=== PATIENT | female | born 2000 | race Caucasian/White ===

== ENCOUNTER 2019-08-03 11:49 | Inpatient (IN) ==
[2019-08-03] MEDS ORDERED: *HR* FentaNYL (PF) 100 MCG/2 ML VIAL IVP PRN (13:07)
[2019-08-03] MEDS ORDERED: Lidocaine 1% 20 ML MDV ID PRN (13:07)
[2019-08-03] MEDS ORDERED: Naloxone 0.4 MG/ML INJ IVP PRN (13:07)
[2019-08-03] MEDS ORDERED: Ondansetron 4 MG/2 ML VIAL IVP PRN (13:07)
[2019-08-03] MEDS ORDERED: Metoclopramide 10 MG/2 ML VIAL IVP PRN (13:07)
[2019-08-03] MEDS ORDERED: Famotidine 20 MG/2 ML VIAL IVP PRN (13:07)
[2019-08-03] MEDS ORDERED: Azithromycin 500 MG in 0.9 % Sodium Chloride 250 ML IVPB ONE (13:07)
[2019-08-03] MEDS ORDERED: Calcium Gluconate 1,000 MG/10 ML VIAL IVP PRN (13:12)
[2019-08-03] MEDS ORDERED: *HR* Labetalol 20 MG/4 ML SYRINGE IVP PRN (13:12)
[2019-08-03] MEDS ORDERED: *HR* Labetalol 20 MG/4 ML SYRINGE IVP ONE (13:16)
[2019-08-03] MEDS ORDERED: Ringers Solution, Lactated 1,000 ML ONE (13:21)
[2019-08-03 13:40] LABS: Basophils % 0.4 %; Eosinophils # 0.1 K/mcL (0.0-0.6); Eosinophils % 0.9 %; Hematocrit 33.9 % (35.3-44.9); Hemoglobin 10.9 g/dL (11.5-15.4); Immature Granulocytes % 0.4 % (0-4); Lymphocytes # 1.9 K/mcL (0.6-4.6); Lymphocytes % 19.3 %; Mean Corpuscular HGB Conc 32.2 g/dL (31.6-35.5); Mean Corpuscular Hemoglobin 28.2 pg (28.0-33.3); Mean Corpuscular Volume 87.8 fL (83.0-100.0); Mean Platelet Volume 11.5 fL (9.4-12.4); Monocytes # 0.7 K/mcL (0.0-1.3); Monocytes % 6.6 %; Neutrophils # 7.2 K/mcL (1.6-8.9); Platelet Count 260 K/mcL (140-400); Red Blood Count 3.86 M/mcL (3.82-4.97); Red Cell Distribution Width 17.1 % (11.5-14.5); Segmented Neutrophils % 72.4 %
[2019-08-03 13:52] LABS: Alanine Aminotransferase 11 Units/L (7-52); Aspartate Amino Transferase 16 Units/L (13-39); BUN/Creatinine Ratio 21 (6-26); Blood Urea Nitrogen 12 mg/dL (6-20); Lactate Dehydrogenase 162 Units/L (140-271); Uric Acid 4.8 mg/dL (2.3-7.6); eGFR For African Americans > 60; eGFR For Non-African Americans > 60
[2019-08-03 13:55] LABS: Amphetamine Screen,Urine Negative ng/mL (Cutoff=1000); Barbiturate Screen,Urine Negative ng/mL (Cutoff=200); Benzodiazepines Screen,Urine Negative ng/mL (Cutoff=200); Cannabinoid Screen,Urine Negative ng/mL (Cutoff = 50); Cocaine Screen,Urine Negative ng/mL (Cutoff= 300); Opiate Screen,Urine Negative ng/mL (Cutoff=300); Phencyclidine Screen,Urine Negative ng/mL (Cutoff=25); Protein/Creatinine Ratio,Urine 1.77 mg/mg (0.00-0.20)
[2019-08-03] MEDS ORDERED: EPHEDrine 50 MG/ML VIAL IVP PRN (14:00)
[2019-08-03] MEDS: Oxytocin 20 units/ LR 1000 mL 20 UNIT/1,000 ML BAG IVC SCH (14:14)
[2019-08-03] MEDS: Magnesium Sulf 20 gm/SW 500mL 20 GM/500 ML IV.SOLN IVC SCH (14:58)
[2019-08-03] MEDS: Epidural Premix (fent/bupiv) 110 ML EP SCH (20:37)
[2019-08-04] MEDS ORDERED: *HR* Promethazine 25 MG/ML VIAL IVP STA (01:20)
[2019-08-04] MEDS: Magnesium Sulf 20 gm/SW 500mL 20 GM/500 ML IV.SOLN IVC SCH ×2 (01:30→13:00)
[2019-08-04] MEDS: Ringers Solution, Lactated 1,000 ML IVC SCH ×2 (01:31→08:52)
[2019-08-04] MEDS: Epidural Premix (fent/bupiv) 110 ML EP SCH ×2 (03:02→08:15)
[2019-08-04] MEDS ORDERED: *HR* FentaNYL (PF) 100 MCG/2 ML VIAL ONE ×3 (05:18→09:36)
[2019-08-04] MEDS ORDERED: Ropivacaine/PF 0.2% 20 ML VIAL ONE (05:18)
[2019-08-04] MEDS ORDERED: Lidocaine/EPI 1:200k 2% PF 20 ML VIAL ONE ×2 (05:18→08:40)
[2019-08-04] MEDS ORDERED: Sodium Bicarbonate 50 MEQ/50 ML VIAL ONE (08:40)
[2019-08-04] MEDS ORDERED: Oxytocin 20 units/ LR 1000 mL 40 UNIT/2,000 ML BAG IVC ONE (08:47)
[2019-08-04] MEDS: Oxytocin 20 units/ LR 1000 mL 20 UNIT/1,000 ML BAG IVC SCH (08:53)
[2019-08-04] MEDS ORDERED: Dexamethasone 4 MG/ML VIAL ONE (08:55)
[2019-08-04] MEDS ORDERED: Ondansetron 4 MG/2 ML VIAL ONE (08:55)
[2019-08-04] MEDS ORDERED: Ringers Solution, Lactated 1,000 ML ONE (08:57)
[2019-08-04] MEDS ORDERED: Ketorolac 30 MG/ML VIAL ONE (09:18)
[2019-08-04] MEDS ORDERED: Acetaminophen IV 1,000 MG/100 ML INFUS..BTL ONE (09:18)
[2019-08-04] MEDS ORDERED: *HR* Oxytocin 10 UNIT/ML VIAL IM ONE (09:21)
[2019-08-04] MEDS ORDERED: *HR* Morphine Sulfate/PF 10 MG/10 ML AMPUL ONE (09:36)
[2019-08-04] MEDS ORDERED: Sennosides 8.6 MG TABLET PO PRN (14:48)
[2019-08-04] MEDS ORDERED: *HR* OxyCODONE Immed Rel 5 MG TABLET PO PRN (14:48)
[2019-08-04] MEDS ORDERED: Simethicone 80 MG TAB.CHEW PO PRN (14:48)
[2019-08-04] MEDS ORDERED: Naloxone 0.4 MG/ML INJ IVP PRN (14:48)
[2019-08-04] MEDS ORDERED: Magnesium Sulf 20 gm/SW 500mL 20 GM/500 ML IV.SOLN IVC SCH (14:48)
[2019-08-04] MEDS ORDERED: Calcium Gluconate 1,000 MG/10 ML VIAL IVP PRN (14:48)
[2019-08-04] MEDS ORDERED: Oxytocin 20 units/ LR 1000 mL 20 UNIT/1,000 ML BAG IVC SCH ×2 (14:48)
[2019-08-04] MEDS ORDERED: Rho Immune Globulin 1,500 UNIT SYRINGE IM ONE (14:48)
[2019-08-04] MEDS ORDERED: Ondansetron 4 MG/2 ML VIAL IVP PRN (14:48)
[2019-08-04] MEDS ORDERED: Acetaminophen 325 MG TABLET PO PRN (14:48)
[2019-08-04] MEDS ORDERED: Metoclopramide 10 MG/2 ML VIAL IVP PRN (14:48)
[2019-08-04] MEDS: metroNIDAZOLE 500 MG TABLET PO SCH ×2 (16:55→21:26)
[2019-08-04] MEDS: cephALEXin 500 MG CAPSULE PO SCH ×2 (16:55→21:26)
[2019-08-04] MEDS: Ibuprofen 600 MG TABLET PO PRN (21:26)
[2019-08-05] MEDS: Ibuprofen 600 MG TABLET PO PRN ×3 (03:03→16:26)
[2019-08-05 05:15] LABS: Basophils % 0.2 %; Eosinophils % 0.2 %; Hematocrit 25.1 % (35.3-44.9); Immature Granulocytes % 0.5 % (0-4); Lymphocytes # 2.1 K/mcL (0.6-4.6); Lymphocytes % 16.5 %; Mean Corpuscular HGB Conc 32.7 g/dL (31.6-35.5); Mean Corpuscular Hemoglobin 28.8 pg (28.0-33.3); Mean Corpuscular Volume 88.1 fL (83.0-100.0); Mean Platelet Volume 10.9 fL (9.4-12.4); Monocytes # 1.2 K/mcL (0.0-1.3); Monocytes % 9.2 %; Neutrophils # 9.5 K/mcL (1.6-8.9); Platelet Count 224 K/mcL (140-400); Red Blood Count 2.85 M/mcL (3.82-4.97); Red Cell Distribution Width 17.7 % (11.5-14.5); Segmented Neutrophils % 73.4 %
[2019-08-05 05:21] LABS: Hemoglobin 8.2 g/dL (11.5-15.4)
[2019-08-05 05:30] LABS: Alanine Aminotransferase 10 Units/L (7-52); Aspartate Amino Transferase 21 Units/L (13-39); BUN/Creatinine Ratio 12 (6-26); Blood Urea Nitrogen 7 mg/dL (6-20); Lactate Dehydrogenase 285 Units/L (140-271); Uric Acid 6.6 mg/dL (2.3-7.6); eGFR For African Americans > 60; eGFR For Non-African Americans > 60
[2019-08-05] MEDS: cephALEXin 500 MG CAPSULE PO SCH ×3 (07:48→20:53)
[2019-08-05] MEDS: metroNIDAZOLE 500 MG TABLET PO SCH ×3 (07:48→20:54)
[2019-08-05] MEDS: Prenatal Vit/FA 1 EACH TABLET PO SCH (07:48)
[2019-08-05] MEDS: *HR* OxyCODONE/APAP 5/325 TABLET PO PRN ×2 (17:17→23:45)
[2019-08-06] MEDS: Prenatal Vit/FA 1 EACH TABLET PO SCH (07:58)
[2019-08-06] MEDS: metroNIDAZOLE 500 MG TABLET PO SCH (07:58)
[2019-08-06] MEDS: cephALEXin 500 MG CAPSULE PO SCH (07:58)
[2019-08-06] MEDS: *HR* OxyCODONE/APAP 5/325 TABLET PO PRN ×2 (07:58→13:19)
[2019-08-06 08:46] VITALS: BP 134/87
== END 2019-08-06 13:55 | disposition home or self-care (01) ==
LOC: 1NENULAB 11:49 → 1NENUOBS 08-04 12:36
PROVIDERS: ADMIT Obstetrics & Gynecology; ATTEND Obstetrics & Gynecology

== ENCOUNTER 2020-08-24 13:46 | Inpatient (IN) ==
[~2020-08-24 13:46] MED LIST: Azithromycin 500 MG in 0.9 % Sodium Chloride 250 ML IVPB ONE; Famotidine 20 MG/2 ML VIAL IVP PRN; Metoclopramide 10 MG/2 ML VIAL IVP PRN; Naloxone 0.4 MG/ML INJ IVP PRN; Ondansetron 4 MG/2 ML VIAL IVP PRN; Oxytocin 20 units/ LR 1000 mL 20 UNIT/1,000 ML BAG IVC SCH
[2020-08-24] MEDS ORDERED: EPHEDrine 50 MG/ML VIAL IVP PRN (13:47)
[2020-08-24] MEDS ORDERED: *HR* FentaNYL (PF) 100 MCG/2 ML VIAL EP ONE (13:47)
[2020-08-24] MEDS ORDERED: *HR* FentaNYL (PF) 250 MCG/5 ML VIAL ONE (13:53)
[2020-08-24 14:19] LABS: Basophils % 0.3 %; Eosinophils # 0.1 K/mcL (0.0-0.6); Eosinophils % 0.6 %; Hematocrit 32.8 % (35.3-44.9); Hemoglobin 9.5 g/dL (11.5-15.4); Immature Granulocytes % 0.5 % (0-4); Lymphocytes # 2.2 K/mcL (0.6-4.6); Lymphocytes % 17.2 %; Mean Corpuscular Hemoglobin 23.4 pg (28.0-33.3); Mean Corpuscular Volume 80.8 fL (83.0-100.0); Mean Platelet Volume 10.4 fL (9.4-12.4); Monocytes # 0.9 K/mcL (0.0-1.3); Monocytes % 7.2 %; Neutrophils # 9.4 K/mcL (1.6-8.9); Nucleated Red Blood Cells 0.2 /100 WBC (0); Platelet Count 262 K/mcL (140-400); Red Blood Count 4.06 M/mcL (3.82-4.97); Red Cell Distribution Width 19.7 % (11.5-14.5); Segmented Neutrophils % 74.2 %; White Blood Count 12.7 K/mcL (4.3-11.1)
[2020-08-24 14:28] LABS: Amphetamine Screen,Urine Negative ng/mL (Cutoff=1000); Barbiturate Screen,Urine Negative ng/mL (Cutoff=200); Benzodiazepines Screen,Urine Negative ng/mL (Cutoff=200); Cannabinoid Screen,Urine Positive ng/mL (Cutoff = 50); Cocaine Screen,Urine Negative ng/mL (Cutoff= 300); Opiate Screen,Urine Negative ng/mL (Cutoff=300); Phencyclidine Screen,Urine Negative ng/mL (Cutoff=25)
[2020-08-24] MEDS: Ringers Solution, Lactated 1,000 ML IVC SCH ×2 (14:50→20:45)
[2020-08-24 15:11] LABS: Adenovirus Not Detected (Not Detect); Bordetella Pertussis Not Detected (Not Detect); Coronavirus 229E Not Detected (Not Detect); Coronavirus HKU1 Not Detected (Not Detect); Coronavirus NL63 Not Detected (Not Detect); Coronavirus OC43 Not Detected (Not Detect); Human Metapneumovirus Not Detected (Not Detect); Human Rhinovirus/Enterovirus Not Detected (Not Detect); Influenza A Subtype 2009 H1 Not Detected (Not Detect); Influenza B Not Detected (Not Detect); Parainfluenza Virus 1 Not Detected (Not Detect); Parainfluenza Virus 2 Not Detected (Not Detect); Parainfluenza Virus 3 Not Detected (Not Detect); Parainfluenza Virus 4 Not Detected (Not Detect); Respiratory Syncytial Virus Not Detected (Not Detect); SARS-CoV-2 Not Detected (Not Detect)
[2020-08-24 15:12] LABS: Chlamydophila pneumoniae Not Detected (Not Detect); Mycoplasma pneumoniae Not Detected (Not Detect)
[2020-08-24 22:17] LABS: Basophils % 0.2 %; Eosinophils # 0.1 K/mcL (0.0-0.6); Eosinophils % 0.6 %; Hematocrit 31.5 % (35.3-44.9); Hemoglobin 9.2 g/dL (11.5-15.4); Immature Granulocytes % 0.4 % (0-4); Lymphocytes # 2.6 K/mcL (0.6-4.6); Lymphocytes % 20.9 %; Mean Corpuscular HGB Conc 29.2 g/dL (31.6-35.5); Mean Corpuscular Hemoglobin 23.6 pg (28.0-33.3); Mean Corpuscular Volume 80.8 fL (83.0-100.0); Mean Platelet Volume 10.8 fL (9.4-12.4); Monocytes % 8.1 %; Neutrophils # 8.8 K/mcL (1.6-8.9); Nucleated Red Blood Cells 0.2 /100 WBC (0); Platelet Count 261 K/mcL (140-400); Red Cell Distribution Width 19.7 % (11.5-14.5); Segmented Neutrophils % 69.8 %; White Blood Count 12.6 K/mcL (4.3-11.1)
[2020-08-24 22:25] LABS: Protein/Creatinine Ratio,Urine 0.25 mg/mg (0.00-0.20)
[2020-08-24 22:35] LABS: Alanine Aminotransferase 9 Units/L (7-52); Aspartate Amino Transferase 12 Units/L (13-39); BUN/Creatinine Ratio 13 (6-26); Blood Urea Nitrogen 5 mg/dL (6-20); Lactate Dehydrogenase 127 Units/L (140-271); Uric Acid 3.8 mg/dL (2.3-7.6); eGFR For African Americans > 60 (> 60); eGFR For Non-African Americans > 60 (> 60)
[2020-08-25] MEDS: Epidural Premix (fent/bupiv) 110 ML EP SCH ×2 (04:30→10:55)
[2020-08-25] MEDS: Ringers Solution, Lactated 1,000 ML IVC SCH (06:32)
[2020-08-25] MEDS ORDERED: *HR* FentaNYL (PF) 100 MCG/2 ML VIAL ONE (08:42)
[2020-08-25] MEDS ORDERED: Ropivacaine/PF 0.2% 20 ML VIAL ONE (08:42)
[2020-08-25] MEDS ORDERED: Oxytocin 20 units/ LR 1000 mL 20 UNIT/1,000 ML BAG IVC SCH (14:22)
[2020-08-25] MEDS ORDERED: Measles/Mumps/Rubella Vacc 0.5 ML VIAL SQ PRN (14:22)
[2020-08-25] MEDS ORDERED: Acetaminophen 325 MG TABLET PO PRN (14:22)
[2020-08-25] MEDS ORDERED: Benzocaine/Menthol 56 GM AEROSOL SPRAY TP PRN (14:22)
[2020-08-25] MEDS: Ibuprofen 600 MG TABLET PO PRN (17:17)
[2020-08-26 04:33] LABS: Basophils # 0.1 K/mcL (0.0-0.2); Basophils % 0.3 %; Eosinophils # 0.1 K/mcL (0.0-0.6); Eosinophils % 0.5 %; Hemoglobin 8.3 g/dL (11.5-15.4); Immature Granulocytes % 0.7 % (0-4); Lymphocytes # 2.9 K/mcL (0.6-4.6); Lymphocytes % 14.1 %; Mean Corpuscular HGB Conc 29.6 g/dL (31.6-35.5); Mean Corpuscular Hemoglobin 24.5 pg (28.0-33.3); Mean Corpuscular Volume 82.6 fL (83.0-100.0); Mean Platelet Volume 11.2 fL (9.4-12.4); Monocytes # 1.6 K/mcL (0.0-1.3); Monocytes % 7.6 %; Neutrophils # 15.9 K/mcL (1.6-8.9); Nucleated Red Blood Cells 0.1 /100 WBC (0); Platelet Count 206 K/mcL (140-400); Red Blood Count 3.39 M/mcL (3.82-4.97); Red Cell Distribution Width 20.8 % (11.5-14.5); Segmented Neutrophils % 76.8 %
[2020-08-26 04:34] LABS: White Blood Count 20.7 K/mcL (4.3-11.1)
[2020-08-26 08:10] VITALS: BP 102/52
[2020-08-26] MEDS: Ibuprofen 600 MG TABLET PO PRN (08:12)
[2020-08-26] MEDS ORDERED: Prenatal Vit/FA 1 EACH TABLET PO SCH (09:00)
[2020-08-26] MEDS ORDERED: Aspirin Enteric Coated 81 MG Tablet PO SCH (09:00)
[2020-08-26] MEDS ORDERED: Acyclovir 200 MG CAPSULE PO SCH (09:00)
[2020-08-26] MEDS ORDERED: Rho Immune Globulin 1,500 UNIT SYRINGE IM ONE (11:04)
== END 2020-08-26 14:15 | disposition home or self-care (01) | DRG 560 ==
LOC: 1NENULAB → 1NENUOBS 08-25 15:33
PROVIDERS: ADMIT Obstetrics & Gynecology; ATTEND Obstetrics & Gynecology

== ENCOUNTER 2021-02-12 17:22 | Inpatient (IN) ==
[2021-02-12] MEDS ORDERED: Isovue-370 500 ML BOTTLE IVP ONE (19:24)
[2021-02-12] MEDS ORDERED: Ringers Solution, Lactated 500 ML ONE (19:35)
[2021-02-12] MEDS ORDERED: Ringers Solution, Lactated 500 ML IVC ONE (19:40)
[2021-02-12] MEDS ORDERED: *HR* HYDROmorphone (PF) 1 MG/ML SYRINGE IVP ONE (19:44)
[2021-02-12] MEDS ORDERED: Rho Immune Globulin 1,500 UNIT SYRINGE IM ONE (20:07)
[2021-02-12] MEDS ORDERED: Td (TENIVAC) Vaccine 0.5 ML VIAL IM ONE (20:23)
[2021-02-12 20:50] LABS: Basophils % 0.1 %; Hematocrit 31.8 % (35.3-44.9); Hemoglobin 10.4 g/dL (11.5-15.4); Immature Granulocytes % 0.4 % (0-4); Lymphocytes # 0.3 K/mcL (0.6-4.6); Lymphocytes % 4.2 %; Mean Corpuscular HGB Conc 32.7 g/dL (31.6-35.5); Mean Corpuscular Hemoglobin 28.6 pg (28.0-33.3); Mean Corpuscular Volume 87.4 fL (83.0-100.0); Monocytes % 0.4 %; Neutrophils # 7.6 K/mcL (1.6-8.9); Platelet Count 185 K/mcL (140-400); Red Blood Count 3.64 M/mcL (3.82-4.97); Red Cell Distribution Width 16.2 % (11.5-14.5); Segmented Neutrophils % 94.9 %
[2021-02-12 20:58] LABS: INR 1.6; Prothrombin Time 17.7 Seconds (9.4-12.1)
[2021-02-12 21:00] LABS: Activated Partial Thrombo Time 26.5 Seconds (26.0-36.0)
[2021-02-12 21:17] LABS: Alanine Aminotransferase 10 Units/L (7-52); Albumin 3.4 g/dL (3.5-5.7); Albumin/Globulin Ratio 1.1 (1.1-2.2); Alkaline Phosphatase 68 Units/L (34-104); Aspartate Amino Transferase 14 Units/L (13-39); BUN/Creatinine Ratio 7 (6-26); Bilirubin,Direct 0.1 mg/dL (0.0-0.2); Bilirubin,Indirect 0.3 mg/dL (0.0-1.0); Bilirubin,Total 0.4 mg/dL (0.3-1.0); Blood Urea Nitrogen 4 mg/dL (6-20); Calcium 8.4 mg/dL (8.6-10.3); Carbon Dioxide 22 mEq/L (23-29); Chloride 101 mEq/L (98-107); Glucose 99 mg/dL (70-105); Magnesium 1.1 mg/dL (1.6-2.6); Osmolality,Calculated 269 (280-300); Phosphorous 2.9 mg/dL (2.7-4.5); Potassium 3.3 mEq/L (3.5-5.1); Sodium 131 mEq/L (136-145); Total Protein 6.4 g/dL (6.4-8.9); eGFR For African Americans > 60 (> 60); eGFR For Non-African Americans > 60 (> 60)
[2021-02-12] MEDS ORDERED: Morphine Sulfate 2 MG/ML SYRINGE IVP PRN (21:44)
[2021-02-12] MEDS ORDERED: Ringers Solution, Lactated 1,000 ML IVC ONE (21:58)
[2021-02-12] MEDS ORDERED: Ondansetron 4 MG/2 ML VIAL IVP PRN (21:59)
[2021-02-12] MEDS: Piperacillin/Tazobactam 3.375 GM in 0.9 % Sodium Chloride Mini Bag 100 ML IVP SCH (22:14)
[2021-02-12] MEDS: Clindamycin 900 MG/50 ML 900 MG/50 ML IV.SOLN IVPB SCH (22:14)
[2021-02-12] MEDS: Ringers Solution, Lactated 1,000 ML IVC SCH (22:15)
[2021-02-12] MEDS: Acetaminophen IV 1,000 MG/100 ML BAG IVPB SCH (23:26)
[2021-02-13] MEDS ORDERED: Piperacillin/Tazobactam 3.375 GM in 0.9 % Sodium Chloride Mini Bag 100 ML IVPB SCH
[2021-02-13] MEDS ORDERED: *HR* HYDROmorphone PF 0.5 MG/0.5 ML SYRINGE IVP PRN (01:19)
[2021-02-13] MEDS ORDERED: Ondansetron 4 MG/2 ML VIAL ONE (01:37)
[2021-02-13] MEDS ORDERED: Lidocaine -MPF 2% 5 ML VIAL ONE (01:37)
[2021-02-13] MEDS ORDERED: *HR* Propofol 200 MG/20 ML VIAL IVP ONE (01:37)
[2021-02-13] MEDS ORDERED: Lidocaine HCL 4 ML Topical Solution (Laryng-O-Jet Kit Sterile Pak) TP ONE (01:37)
[2021-02-13] MEDS ORDERED: *HR* Succinylcholine 200 MG/10 ML VIAL IVP ONE (01:37)
[2021-02-13] MEDS ORDERED: *HR* FentaNYL (PF) 100 MCG/2 ML VIAL ONE (01:37)
[2021-02-13] MEDS ORDERED: Methylergonovine 0.2 MG/ML AMPUL IM ONE (01:45)
[2021-02-13] MEDS ORDERED: Ibuprofen 600 MG TABLET PO PRN (02:19)
[2021-02-13] MEDS ORDERED: *HR* HYDROcodone/Acet 5/325 mg TABLET PO PRN (02:20)
[2021-02-13] MEDS: Piperacillin/Tazobactam 3.375 GM in 0.9 % Sodium Chloride Mini Bag 100 ML IVP SCH ×3 (04:58→20:45)
[2021-02-13] MEDS: Clindamycin 900 MG/50 ML 900 MG/50 ML IV.SOLN IVPB SCH ×3 (04:58→20:43)
[2021-02-13] MEDS: Acetaminophen IV 1,000 MG/100 ML BAG IVPB SCH ×3 (05:19→18:54)
[2021-02-13 05:20] LABS: Bilirubin,Urine Negative (Negative); Blood,Urine Large (Negative); Clarity,Urine Clear (Clear); Color,Urine Light-Orange (Yellow); Glucose,Urine (UA) Normal (Normal); Ketones,Urine Trace mg/dL (Negative); Leukocyte Esterase,Urine Negative (Negative); Nitrite,Urine Negative (Negative); PH,Urine 6.5 pH Units (5.0-8.0); Protein,Urine Trace mg/dL (Neg-Trace); RBC,Urine TNTC per hpf (0-3); Specific Gravity,Urine 1.018 (1.010-1.025); Squamous Epithelial Cell,Urine Few per hpf (None-Few); Urobilinogen,Urine Normal (Normal); WBC,Urine 15-30 per hpf (0-3)
[2021-02-13] MEDS: Ondansetron 4 MG/2 ML VIAL IVP SCH ×3 (06:32→18:54)
[2021-02-13] MEDS ORDERED: Ringers Solution, Lactated 1,000 ML IVC ONE (07:53)
[2021-02-13] MEDS ORDERED: 0.9 % Sodium Chloride 1,000 ML IVC ONE ×2 (08:02→09:50)
[2021-02-13 08:36] LABS: Mean Platelet Volume 10.9 fL (9.4-12.4)
[2021-02-13 08:37] LABS: Hematocrit 28.4 % (35.3-44.9); Hemoglobin 9.2 g/dL (11.5-15.4); Immature Platelets 4.7 % (1.1-6.1); Mean Corpuscular HGB Conc 32.4 g/dL (31.6-35.5); Mean Corpuscular Hemoglobin 28.2 pg (28.0-33.3); Mean Corpuscular Volume 87.1 fL (83.0-100.0); Platelet Count 134 K/mcL (140-400); Red Blood Count 3.26 M/mcL (3.82-4.97); Red Cell Distribution Width 16.5 % (11.5-14.5); White Blood Count 7.6 K/mcL (4.3-11.1)
[2021-02-13 08:49] LABS: INR 2.2; Prothrombin Time 24.9 Seconds (9.4-12.1)
[2021-02-13 08:53] LABS: Activated Partial Thrombo Time 36.1 Seconds (26.0-36.0)
[2021-02-13 08:59] LABS: Alanine Aminotransferase 14 Units/L (7-52); Albumin 2.7 g/dL (3.5-5.7); Albumin/Globulin Ratio 1.1 (1.1-2.2); Alkaline Phosphatase 61 Units/L (34-104); Aspartate Amino Transferase 27 Units/L (13-39); BUN/Creatinine Ratio 10 (6-26); Blood Urea Nitrogen 6 mg/dL (6-20); Calcium 7.6 mg/dL (8.6-10.3); Carbon Dioxide 22 mEq/L (23-29); Chloride 106 mEq/L (98-107); Globulin 2.5 g/dL (2.4-3.5); Glucose 108 mg/dL (70-105); Osmolality,Calculated 278 (280-300); Sodium 135 mEq/L (136-145); Total Protein 5.2 g/dL (6.4-8.9); eGFR For African Americans > 60 (> 60); eGFR For Non-African Americans > 60 (> 60)
[2021-02-13 09:19] LABS: Lymphocytes # 0.1 K/mcL (0.6-4.6); Neutrophils # 6.9 K/mcL (1.6-8.9); Platelet Estimate Slight Decrease (Normal)
[2021-02-13] MEDS: Morphine Sulfate 2 MG/ML SYRINGE IVP PRN ×2 (11:10→11:48)
[2021-02-13] MEDS ORDERED: Norepinephrine 4 MG/254 ML IV.SOLN IVC SCH (14:00)
[2021-02-13 15:36] LABS: BUN/Creatinine Ratio 13 (6-26); Blood Urea Nitrogen 6 mg/dL (6-20); Calcium 7.4 mg/dL (8.6-10.3); Carbon Dioxide 21 mEq/L (23-29); Chloride 112 mEq/L (98-107); Glucose 97 mg/dL (70-105); Osmolality,Calculated 282 (280-300); Potassium 3.6 mEq/L (3.5-5.1); Sodium 137 mEq/L (136-145); eGFR For African Americans > 60 (> 60); eGFR For Non-African Americans > 60 (> 60)
[2021-02-13] MEDS: Ringers Solution, Lactated 1,000 ML IVC SCH ×2 (15:36→22:55)
[2021-02-13 15:40] LABS: Acinetobacter baumannii by PCR Not Detected (Not Detect); Candida albicans by PCR Not Detected (Not Detect); Candida glabrata by PCR Not Detected (Not Detect); Candida krusei by PCR Not Detected (Not Detect); Candida parapsilosis by PCR Not Detected (Not Detect); Candida tropicalis by PCR Not Detected (Not Detect); Enterobacter cloacae Cmplx PCR Not Detected (Not Detect); Enterobacteriaceae by PCR Not Detected (Not Detect); Enterococcus by PCR Not Detected (Not Detect); Escherichia coli by PCR Not Detected (Not Detect); Klebsiella oxytoca by PCR Not Detected (Not Detect); Klebsiella pneumoniae by PCR Not Detected (Not Detect); Proteus by PCR Not Detected (Not Detect); Pseudomonas aeruginosa by PCR Not Detected (Not Detect); Serratia marcescens by PCR Not Detected (Not Detect); Staphylococcus aureus by PCR DETECTED (Not Detect); Streptococcus agalactiae(B)PCR Not Detected (Not Detect); Streptococcus by PCR Not Detected (Not Detect); Streptococcus pneumoniae PCR Not Detected (Not Detect); Streptococcus pyogenes (A) PCR Not Detected (Not Detect); mecA Methicillin-Resist Gene Not Detected (Not Detect)
[2021-02-13] MEDS: *HR* Heparin 5,000 UNIT/ML VIAL SQ SCH (18:54)
[2021-02-13] MEDS: Phenylephrine 10 MG in 0.9 % Sodium Chloride 250 ML IVC SCH (20:29)
[2021-02-13] MEDS: Vancomycin 1,250 MG/262.5 ML IV.SOLN IVPB SCH (22:11)
[2021-02-14] MEDS: Acetaminophen IV 1,000 MG/100 ML BAG IVPB SCH ×4 (00:07→16:45)
[2021-02-14] MEDS: Ondansetron 4 MG/2 ML VIAL IVP SCH ×4 (00:08→16:45)
[2021-02-14] MEDS: Clindamycin 900 MG/50 ML 900 MG/50 ML IV.SOLN IVPB SCH ×2 (05:13→11:45)
[2021-02-14] MEDS: Piperacillin/Tazobactam 3.375 GM in 0.9 % Sodium Chloride Mini Bag 100 ML IVP SCH ×2 (05:16→14:37)
[2021-02-14] MEDS: Vancomycin 1,250 MG/262.5 ML IV.SOLN IVPB SCH ×2 (05:19→14:32)
[2021-02-14] MEDS: *HR* Heparin 5,000 UNIT/ML VIAL SQ SCH ×2 (05:22→16:45)
[2021-02-14 05:42] LABS: Mean Platelet Volume 11.7 fL (9.4-12.4); Platelet Count 101 K/mcL (140-400)
[2021-02-14 05:44] LABS: Hematocrit 27.2 % (35.3-44.9); Hemoglobin 8.9 g/dL (11.5-15.4); Immature Platelets 6.3 % (1.1-6.1); Mean Corpuscular HGB Conc 32.7 g/dL (31.6-35.5); Mean Corpuscular Hemoglobin 28.4 pg (28.0-33.3); Mean Corpuscular Volume 86.9 fL (83.0-100.0); Red Blood Count 3.13 M/mcL (3.82-4.97); Red Cell Distribution Width 16.8 % (11.5-14.5); White Blood Count 5.4 K/mcL (4.3-11.1)
[2021-02-14 06:01] LABS: Alanine Aminotransferase 24 Units/L (7-52); Albumin 2.3 g/dL (3.5-5.7); Alkaline Phosphatase 94 Units/L (34-104); Aspartate Amino Transferase 46 Units/L (13-39); BUN/Creatinine Ratio 16 (6-26); Bilirubin,Total 1.1 mg/dL (0.3-1.0); Blood Urea Nitrogen 7 mg/dL (6-20); Calcium 7.8 mg/dL (8.6-10.3); Carbon Dioxide 20 mEq/L (23-29); Chloride 112 mEq/L (98-107); Globulin 2.2 g/dL (2.4-3.5); Glucose 65 mg/dL (70-105); Magnesium 1.5 mg/dL (1.6-2.6); Osmolality,Calculated 280 (280-300); Phosphorous 1.8 mg/dL (2.7-4.5); Potassium 3.4 mEq/L (3.5-5.1); Sodium 137 mEq/L (136-145); Total Protein 4.5 g/dL (6.4-8.9); eGFR For African Americans > 60 (> 60); eGFR For Non-African Americans > 60 (> 60)
[2021-02-14 06:10] LABS: Lymphocytes # 0.5 K/mcL (0.6-4.6); Monocytes # 0.2 K/mcL (0.0-1.3); Neutrophils # 4.6 K/mcL (1.6-8.9); Platelet Estimate Decreased (Normal)
[2021-02-14] MEDS: Ringers Solution, Lactated 1,000 ML IVC SCH ×3 (06:13→20:36)
[2021-02-14] MEDS: Phenylephrine 10 MG in 0.9 % Sodium Chloride 250 ML IVC SCH (16:38)
[2021-02-15] MEDS ORDERED: Acetaminophen 325 MG TABLET PO ONE (04:07)
[2021-02-15] MEDS ORDERED: Piperacillin/Tazobactam 3.375 GM in 0.9 % Sodium Chloride Mini Bag 100 ML IVPB SCH (08:20)
[2021-02-15] MEDS ORDERED: Acetaminophen 325 MG TABLET PO PRN (08:21)
[2021-02-15] MEDS ORDERED: Ondansetron 4 MG/2 ML VIAL IVP PRN (08:22)
[2021-02-15] MEDS ORDERED: Perflutren Lipid Microsphere 1.3 ML in 0.9 % Sodium Chloride 8.7 ML IVP PRN (08:26)
[2021-02-15] MEDS ORDERED: Isovue-370 500 ML BOTTLE IVP ONE (08:50)
[2021-02-15] MEDS ORDERED: Vancomycin 1,500 MG/265 ML IV.SOLN IVPB SCH (09:00)
[2021-02-15] MEDS ORDERED: Vancomycin (wt based) 1,000 MG VIAL IVPB SCH (09:00)
[2021-02-15 09:11] LABS: Hematocrit 28.5 % (35.3-44.9)
[2021-02-15 09:13] LABS: Hemoglobin 9.3 g/dL (11.5-15.4); Immature Platelets 5.8 % (1.1-6.1); Mean Corpuscular HGB Conc 32.6 g/dL (31.6-35.5); Mean Corpuscular Hemoglobin 28.2 pg (28.0-33.3); Mean Corpuscular Volume 86.4 fL (83.0-100.0); Mean Platelet Volume 11.3 fL (9.4-12.4); Monocytes # 0.1 K/mcL (0.0-1.3); Platelet Count 139 K/mcL (140-400); Red Cell Distribution Width 16.9 % (11.5-14.5); White Blood Count 4.2 K/mcL (4.3-11.1)
[2021-02-15 09:20] LABS: Alanine Aminotransferase 27 Units/L (7-52); Albumin 2.5 g/dL (3.5-5.7); Alkaline Phosphatase 235 Units/L (34-104); Aspartate Amino Transferase 53 Units/L (13-39); BUN/Creatinine Ratio 11 (6-26); Bilirubin,Total 1.6 mg/dL (0.3-1.0); Blood Urea Nitrogen 5 mg/dL (6-20); Calcium 7.7 mg/dL (8.6-10.3); Carbon Dioxide 20 mEq/L (23-29); Chloride 112 mEq/L (98-107); Globulin 2.4 g/dL (2.4-3.5); Glucose 71 mg/dL (70-105); Magnesium 1.4 mg/dL (1.6-2.6); Osmolality,Calculated 282 (280-300); Potassium 3.1 mEq/L (3.5-5.1); Sodium 138 mEq/L (136-145); Total Protein 4.9 g/dL (6.4-8.9); eGFR For African Americans > 60 (> 60); eGFR For Non-African Americans > 60 (> 60)
[2021-02-15 10:10] LABS: Lymphocytes # 1.7 K/mcL (0.6-4.6); Neutrophils # 2.4 K/mcL (1.6-8.9); Platelet Estimate Slight Decrease (Normal); Reactive Lymphocytes Present (Not Present)
[2021-02-15] MEDS: *HR* Heparin 5,000 UNIT/ML VIAL SQ SCH ×2 (12:05→18:54)
[2021-02-15] MEDS: CeFAZolin 2,000 MG/120 ML BAG IVPB SCH ×2 (12:06→17:15)
[2021-02-16] MEDS: CeFAZolin 2,000 MG/120 ML BAG IVPB SCH ×3 (00:33→17:28)
[2021-02-16 03:23] LABS: Alanine Aminotransferase 40 Units/L (7-52); Albumin/Globulin Ratio 1.1 (1.1-2.2); Alkaline Phosphatase 416 Units/L (34-104); Aspartate Amino Transferase 93 Units/L (13-39); BUN/Creatinine Ratio 7 (6-26); Bilirubin,Total 1.8 mg/dL (0.3-1.0); Blood Urea Nitrogen 3 mg/dL (6-20); Calcium 8.5 mg/dL (8.6-10.3); Carbon Dioxide 20 mEq/L (23-29); Chloride 110 mEq/L (98-107); Globulin 2.8 g/dL (2.4-3.5); Glucose 73 mg/dL (70-105); Osmolality,Calculated 285 (280-300); Potassium 3.3 mEq/L (3.5-5.1); Sodium 140 mEq/L (136-145); Total Protein 5.8 g/dL (6.4-8.9); eGFR For African Americans > 60 (> 60); eGFR For Non-African Americans > 60 (> 60)
[2021-02-16 04:37] LABS: Basophils % 0.6 %; Eosinophils # 0.1 K/mcL (0.0-0.6); Eosinophils % 1.3 %; Hematocrit 29.4 % (35.3-44.9); Hemoglobin 9.8 g/dL (11.5-15.4); Immature Granulocytes % 2.1 % (0-4); Lymphocytes # 2.4 K/mcL (0.6-4.6); Lymphocytes % 51.3 %; Mean Corpuscular HGB Conc 33.3 g/dL (31.6-35.5); Mean Platelet Volume 12.4 fL (9.4-12.4); Monocytes # 0.2 K/mcL (0.0-1.3); Neutrophils # 1.9 K/mcL (1.6-8.9); Platelet Count 107 K/mcL (140-400); Red Cell Distribution Width 16.9 % (11.5-14.5); Segmented Neutrophils % 40.7 %; White Blood Count 4.7 K/mcL (4.3-11.1)
[2021-02-16] MEDS: *HR* Heparin 5,000 UNIT/ML VIAL SQ SCH ×2 (05:25→17:31)
[2021-02-16] MEDS ORDERED: 0.9 % Sodium Chloride 500 ML IVC ONE (12:49)
[2021-02-16] MEDS ORDERED: Lidocaine Viscous Oral Soln 15 ML SOLUTION MM PRN (12:49)
[2021-02-16] MEDS: *HR* Midazolam HCl 5 MG/5 ML VIAL IVP PRN ×3 (13:20→13:30)
[2021-02-16] MEDS: *HR* FentaNYL (PF) 100 MCG/2 ML VIAL IVP PRN ×3 (13:20→13:30)
[2021-02-16] MEDS ORDERED: Etonogestrel 68 MG IMPLANT IL PRN (17:01)
[2021-02-16] MEDS ORDERED: Lidocaine -MPF 1% 5 ML AMPUL ID PRN (17:01)
[2021-02-16] MEDS ORDERED: BuPROPion XL (24 HR) 150 MG TABLET PO SCH (18:45)
[2021-02-16] MEDS: BuPROPion XL (24 HR) 150 MG TABLET PO SCH (20:43)
[2021-02-17] MEDS: CeFAZolin 2,000 MG/120 ML BAG IVPB SCH ×4 (00:48→23:59)
[2021-02-17] MEDS: *HR* Heparin 5,000 UNIT/ML VIAL SQ SCH ×2 (04:38→14:37)
[2021-02-17 08:20] LABS: Hematocrit 30.8 % (35.3-44.9); Hemoglobin 10.1 g/dL (11.5-15.4); Mean Corpuscular HGB Conc 32.8 g/dL (31.6-35.5); Mean Corpuscular Hemoglobin 27.8 pg (28.0-33.3); Mean Corpuscular Volume 84.8 fL (83.0-100.0); Mean Platelet Volume 11.7 fL (9.4-12.4); Platelet Count 152 K/mcL (140-400); Red Blood Count 3.63 M/mcL (3.82-4.97); Red Cell Distribution Width 17.1 % (11.5-14.5); White Blood Count 3.7 K/mcL (4.3-11.1)
[2021-02-17 08:41] LABS: Alanine Aminotransferase 49 Units/L (7-52); Albumin 2.9 g/dL (3.5-5.7); Alkaline Phosphatase 468 Units/L (34-104); Aspartate Amino Transferase 89 Units/L (13-39); BUN/Creatinine Ratio 19 (6-26); Bilirubin,Total 0.8 mg/dL (0.3-1.0); Blood Urea Nitrogen 8 mg/dL (6-20); Calcium 8.5 mg/dL (8.6-10.3); Carbon Dioxide 22 mEq/L (23-29); Chloride 109 mEq/L (98-107); Globulin 2.9 g/dL (2.4-3.5); Glucose 81 mg/dL (70-105); Magnesium 1.6 mg/dL (1.6-2.6); Osmolality,Calculated 285 (280-300); Potassium 3.3 mEq/L (3.5-5.1); Sodium 139 mEq/L (136-145); Total Protein 5.8 g/dL (6.4-8.9); eGFR For African Americans > 60 (> 60); eGFR For Non-African Americans > 60 (> 60)
[2021-02-17 08:53] LABS: Eosinophils # 0.2 K/mcL (0.0-0.6); Lymphocytes # 2.7 K/mcL (0.6-4.6); Neutrophils # 0.9 K/mcL (1.6-8.9); Platelet Estimate Normal (Normal)
[2021-02-17] MEDS: BuPROPion XL (24 HR) 150 MG TABLET PO SCH (20:28)
[2021-02-18] MEDS: Melatonin 3 MG TABLET PO SCH (00:38)
[2021-02-18 03:50] LABS: Basophils % 0.7 %; Eosinophils # 0.1 K/mcL (0.0-0.6); Eosinophils % 1.6 %; Hematocrit 32.3 % (35.3-44.9); Hemoglobin 10.5 g/dL (11.5-15.4); Immature Granulocytes % 0.7 % (0-4); Lymphocytes # 2.8 K/mcL (0.6-4.6); Lymphocytes % 65.9 %; Mean Corpuscular HGB Conc 32.5 g/dL (31.6-35.5); Mean Corpuscular Volume 86.1 fL (83.0-100.0); Monocytes # 0.4 K/mcL (0.0-1.3); Monocytes % 10.1 %; Neutrophils # 0.9 K/mcL (1.6-8.9); Platelet Count 219 K/mcL (140-400); Red Blood Count 3.75 M/mcL (3.82-4.97); Red Cell Distribution Width 17.1 % (11.5-14.5); White Blood Count 4.3 K/mcL (4.3-11.1)
[2021-02-18 04:04] LABS: BUN/Creatinine Ratio 19 (6-26); Blood Urea Nitrogen 8 mg/dL (6-20); Calcium 8.4 mg/dL (8.6-10.3); Carbon Dioxide 23 mEq/L (23-29); Chloride 108 mEq/L (98-107); Glucose 83 mg/dL (70-105); Magnesium 1.9 mg/dL (1.6-2.6); Osmolality,Calculated 283 (280-300); Potassium 3.6 mEq/L (3.5-5.1); Sodium 138 mEq/L (136-145); eGFR For African Americans > 60 (> 60); eGFR For Non-African Americans > 60 (> 60)
[2021-02-18 04:27] LABS: Anisocytosis 1+ (Not Present); Hypochromasia Present (Not Present); Platelet Estimate Normal (Normal); Reactive Lymphocytes Present (Not Present)
[2021-02-18] MEDS: *HR* Heparin 5,000 UNIT/ML VIAL SQ SCH ×2 (05:16→08:12)
[2021-02-18] MEDS: CeFAZolin 2,000 MG/120 ML BAG IVPB SCH ×2 (09:18→16:29)
[2021-02-18] MEDS: BuPROPion XL (24 HR) 150 MG TABLET PO SCH (21:08)
[2021-02-19] MEDS: CeFAZolin 2,000 MG/120 ML BAG IVPB SCH ×4 (00:33→23:08)
[2021-02-19] MEDS: Melatonin 3 MG TABLET PO SCH ×2 (00:33→20:29)
[2021-02-19 03:26] LABS: Basophils % 0.4 %; Eosinophils # 0.1 K/mcL (0.0-0.6); Eosinophils % 0.7 %; Hemoglobin 10.4 g/dL (11.5-15.4); Immature Granulocytes % 0.8 % (0-4); Lymphocytes # 3.8 K/mcL (0.6-4.6); Lymphocytes % 53.2 %; Mean Corpuscular HGB Conc 31.5 g/dL (31.6-35.5); Mean Corpuscular Hemoglobin 27.7 pg (28.0-33.3); Mean Platelet Volume 10.7 fL (9.4-12.4); Monocytes # 0.6 K/mcL (0.0-1.3); Monocytes % 8.5 %; Neutrophils # 2.6 K/mcL (1.6-8.9); Platelet Count 311 K/mcL (140-400); Red Blood Count 3.75 M/mcL (3.82-4.97); Red Cell Distribution Width 17.3 % (11.5-14.5); Segmented Neutrophils % 36.4 %; White Blood Count 7.2 K/mcL (4.3-11.1)
[2021-02-19] MEDS: *HR* Heparin 5,000 UNIT/ML VIAL SQ SCH ×2 (05:34→15:45)
[2021-02-19 09:57] LABS: BUN/Creatinine Ratio 20 (6-26); Blood Urea Nitrogen 10 mg/dL (6-20); Calcium 8.7 mg/dL (8.6-10.3); Carbon Dioxide 22 mEq/L (23-29); Chloride 109 mEq/L (98-107); Glucose 109 mg/dL (70-105); Osmolality,Calculated 290 (280-300); Potassium 3.7 mEq/L (3.5-5.1); Sodium 140 mEq/L (136-145); eGFR For African Americans > 60 (> 60); eGFR For Non-African Americans > 60 (> 60)
[2021-02-19] MEDS: BuPROPion XL (24 HR) 150 MG TABLET PO SCH (20:29)
[2021-02-20 02:03] LABS: Basophils % 0.4 %; Eosinophils # 0.1 K/mcL (0.0-0.6); Eosinophils % 0.8 %; Hematocrit 34.4 % (35.3-44.9); Hemoglobin 11.2 g/dL (11.5-15.4); Immature Granulocytes % 1.1 % (0-4); Lymphocytes # 3.9 K/mcL (0.6-4.6); Lymphocytes % 39.9 %; Mean Corpuscular HGB Conc 32.6 g/dL (31.6-35.5); Mean Platelet Volume 10.5 fL (9.4-12.4); Monocytes # 0.8 K/mcL (0.0-1.3); Monocytes % 8.2 %; Neutrophils # 4.8 K/mcL (1.6-8.9); Platelet Count 385 K/mcL (140-400); Red Cell Distribution Width 17.5 % (11.5-14.5); Segmented Neutrophils % 49.6 %; White Blood Count 9.7 K/mcL (4.3-11.1)
[2021-02-20 02:14] LABS: BUN/Creatinine Ratio 24 (6-26); Blood Urea Nitrogen 12 mg/dL (6-20); Calcium 9.1 mg/dL (8.6-10.3); Carbon Dioxide 21 mEq/L (23-29); Chloride 107 mEq/L (98-107); Glucose 97 mg/dL (70-105); Osmolality,Calculated 286 (280-300); Potassium 4.4 mEq/L (3.5-5.1); Sodium 138 mEq/L (136-145); eGFR For African Americans > 60 (> 60); eGFR For Non-African Americans > 60 (> 60)
[2021-02-20] MEDS: *HR* Heparin 5,000 UNIT/ML VIAL SQ SCH ×2 (05:08→17:39)
[2021-02-20] MEDS: CeFAZolin 2,000 MG/120 ML BAG IVPB SCH ×3 (08:28→23:18)
[2021-02-20] MEDS: BuPROPion XL (24 HR) 150 MG TABLET PO SCH (21:21)
[2021-02-20] MEDS: Melatonin 3 MG TABLET PO SCH (21:21)
[2021-02-21] MEDS: *HR* Heparin 5,000 UNIT/ML VIAL SQ SCH ×2 (05:26→14:34)
[2021-02-21] MEDS: CeFAZolin 2,000 MG/120 ML BAG IVPB SCH ×3 (07:45→23:20)
[2021-02-21] MEDS: BuPROPion XL (24 HR) 150 MG TABLET PO SCH (21:01)
[2021-02-21] MEDS: Melatonin 3 MG TABLET PO SCH (21:02)
[2021-02-22] MEDS: *HR* Heparin 5,000 UNIT/ML VIAL SQ SCH ×2 (05:10→13:22)
[2021-02-22] MEDS: CeFAZolin 2,000 MG/120 ML BAG IVPB SCH ×2 (07:39→15:58)
[2021-02-22 15:16] VITALS: BP 103/72; PULSE 98; TEMP 98.2; O2SAT 99
== END 2021-02-22 17:05 | disposition home or self-care (01) | DRG 543 ==
LOC: 1NENUOBS → SUATTDRO 18:54 → 2NNU 21:00 → SUATTDRO 02-14 09:25 → 2ANU 02-14 16:36
PROVIDERS: ADMIT Obstetrics & Gynecology; ATTEND Internal Medicine